=== PATIENT | male | born 1960 | race Hispanic/Latino ===

== ENCOUNTER 2022-08-05 08:03 | Emergency (ER) | payer OTHER ==
[~2022-08-05] VITALS: Ht 175.3 cm; Wt 77.1 kg
[2022-08-05] MEDS ORDERED: CIPR7.5D OT (08:31)
[2022-08-05 08:53] VITALS: BP 135/81
== END 2022-08-05 08:55 | disposition home or self-care (01) ==
LOC: EDH 08:03
DX: T16.2XXA Foreign body in left ear, initial encounter (principal); X58.XXXA Exposure to other specified factors, initial encounter; Y93.89 Activity, other specified; Y92.89 Other specified places as the place of occurrence of the external cause; Y99.8 Other external cause status

== ENCOUNTER 2023-05-08 10:09 | Emergency (ER) | payer OTHER ==
[~2023-05-08] VITALS: Ht 175.3 cm; Wt 68.0 kg
[~2023-05-08 10:09] MED LIST: CIPR7.5D OT
[2023-05-08 11:16] LABS: BASOPHILS # (AUTO) 0.05 K/uL (0.00-0.20); BASOPHILS % (AUTO) 0.5 % (0.0-5.0); EOSINOPHILS # (AUTO) 0.48 K/uL (0.00-0.70); HEMATOCRIT 39.8 % (42-54); IMMATURE GRANULOCYTE ABSOLUTE 0.04 K/uL (0-1); LYMPHOCYTES # (AUTO) 1.4 K/uL (1.0-4.8); LYMPHOCYTES % (AUTO) 14.9 % (21.0-51.0); MEAN CORPUSCULAR HEMOGLOBIN 31.9 pg (27.0-33.0); MEAN CORPUSCULAR HGB CONC 32.7 g/dL (32.0-36.0); MEAN CORPUSCULAR VOLUME 97.8 fL (79-99); MONOCYTES # (AUTO) 0.9 K/uL (0.1-1.0); MONOCYTES % (AUTO) 8.9 % (3.0-13.0); NEUTROPHILS # (AUTO) 6.7 K/uL (1.8-7.7); NEUTROPHILS % (AUTO) 70.3 % (40.0-77.0); PLATELET COUNT (AUTO) 326 K/uL (130-400); RED BLOOD CELL COUNT(AUTO) 4.07 MIL/uL (4.50-6.20); RED CELL DISTRIBUTION WIDTH 13.6 % (11.0-15.5); WHITE BLOOD COUNT (AUTO) 9.6 K/uL (4.8-10.8)
[2023-05-08 11:26] LABS: POTASSIUM 5.5 mmol/L (3.5-5.1)
[2023-05-08 11:31] LABS: ALBUMIN 3.2 g/dL (3.5-5.0); BILIRUBIN,TOTAL 0.3 mg/dL (0.2-1.0); TOTAL PROTEIN, SERUM 7.4 g/dL (6.0-8.3)
[2023-05-08] MEDS ORDERED: LIDOCAINE HCL 1% 20 ML VIAL ONE (11:38)
[2023-05-08] MEDS ORDERED: CEFTRIAXONE 1G VIAL IM ONE (12:30)
[2023-05-08] MEDS ORDERED: ACETAMINOPHEN WITH CODEINE 1 TAB TAB PO ONE (12:30)
[2023-05-08] MEDS ORDERED: CEPH500B PO (12:34)
[2023-05-08] MEDS ORDERED: ACET-2079 PO (12:34)
[2023-05-08] MEDS ORDERED: SULF1TAB42 PO (12:34)
[2023-05-08] MEDS ORDERED: BACITRACIN 1 EACH PACKET TP ONE ×2 (12:40→13:00)
[2023-05-08 12:48] VITALS: BP 129/80; PULSE 80; RESP 18; O2SAT 96
== END 2023-05-08 12:59 | disposition home or self-care (01) ==
LOC: EDH 10:09
DX: L02.212 Cutaneous abscess of back [any part, except buttock and flank] (principal); Z79.899 Other long term (current) drug therapy
CPT/HCPCS: 99283; 10060; 80053; 83690; 85025; 36415; 96372; J0696